=== PATIENT | male | born 1965 | race Two or more races ===

== ENCOUNTER 2021-09-28 13:36 | Emergency (ER) | payer OTHER, MEDICAID ==
[~2021-09-28] VITALS: Ht 170.2 cm; Wt 99.8 kg
[2021-09-28] MEDS ORDERED: SODIUM CHLORIDE 0.9% 1,000 ML IV ONE (14:30)
[2021-09-28 15:20] LABS: Basophils # (auto) 0 10 ^3/uL (0-0.2); Basophils % (auto) 0.3 % (0.0-2.0); Eosinophils # (auto) 0 10 ^3/uL (0-0.8); Eosinophils % (auto) 0.3 % (0.0-7.0); Hematocrit 45.4 % (41.0-53.0); Hemoglobin 15.8 g/dL (13.5-17.5); Lymphocytes # (auto) 0.9 10 ^3/uL (0.4-5.4); Lymphocytes % (auto) 13.4 % (10.0-50.0); Mean Corpuscular Hemoglobin 31.7 pg (28.0-32.0); Mean Corpuscular Hgb Conc. 34.7 g/dL (32.0-36.0); Mean Corpuscular Volume 91.3 fL (80.0-100.0); Monocytes # (auto) 0.3 10 ^3/uL (0-1.3); Monocytes % (auto) 4.1 % (0.0-12.0); Neutrophils # (auto) 5.7 10 ^3/uL (1.6-8.6); Neutrophils % (auto) 81.9 % (37.0-80.0); Red Blood Cells 4.98 10^6/uL (4.5-5.90); Red Cell Distribution Width 13.3 % (11.8-14.3); White Blood Cell 6.9 10^3/uL (4.4-10.8)
[2021-09-28 15:25] LABS: Albumin 4.2 g/dL (3.4-5.0); Calcium 8.9 mg/dL (8.5-10.1); Potassium 3.4 mmol/L (3.5-5.1)
[2021-09-28 15:29] LABS: BUN/Creatinine Ratio 10.2; Bilirubin, Total 0.2 mg/dL (0.2-1.0); Total Protein 7.7 g/dL (6.4-8.2)
[2021-09-28] MEDS ORDERED: ZINC220C8 PO (15:47)
[2021-09-28] MEDS ORDERED: ONDA-144 PO (15:47)
[2021-09-28] MEDS ORDERED: METH4PAK PO (15:47)
[2021-09-28 19:03] VITALS: BP 158/104
== END 2021-09-28 21:03 | disposition home or self-care (01) ==
LOC: ER 13:36
DX: U07.1 COVID-19 (principal); R11.2 Nausea with vomiting, unspecified; E78.5 Hyperlipidemia, unspecified; I10 Essential (primary) hypertension
CPT/HCPCS: 36415; 71045; 80053; 85025; 87426; 93005; 96360; 99285; J7030